=== PATIENT | female | born 1985 | race Caucasian/White ===

== ENCOUNTER 2018-01-23 08:01 | Emergency (ER) | payer OTHER ==
[2018-01-23 08:05] VITALS: BP 136/83
--- NOTE | 2018-01-23 08:25 | PHYS DOC ---
Past History Past Medical History: No Pertinent History Past Surgical History: No Surgical History Smoking: Non-smoker Alcohol Use: None Drug Use: None Adult General Chief Complaint Chief Complaint: SORE THROAT HPI HPI 32 years old female patient at 37 weeks of gestation complaining of sore throat and nasal congestion and nonproductive cough for the last 2 days without fever and chills, sick contact, abdominal pain and vaginal bleeding and discharge. Patient denies taking any pain medication or history of frequent strep infection. Patient feels movement. Review of Systems Review of Systems Constitutional: Denies fever or chills [] Eyes: Denies change in visual acuity, redness, or eye pain [] HENT: Reports nasal congestion and sore throat Respiratory: Reports nonproductive cough, denies shortness of breath Cardiovascular: No additional information not addressed in HPI [] GI: Denies abdominal pain, nausea, vomiting, bloody stools or diarrhea [] : Denies dysuria or hematuria [] Musculoskeletal: Denies back pain or joint pain [] Integument: Denies rash or skin lesions [] Neurologic: Denies headache, focal weakness or sensory changes [] Endocrine: Denies polyuria or polydipsia [] All other systems were reviewed and found to be within normal limits, except as documented in this note. Physical Exam Physical Exam Constitutional: Well developed, well nourished, mild distress, non-toxic appearance. [] HENT: Normocephalic, atraumatic, bilateral external ears normal, oropharynx moist, no oral exudates, nose normal. [] Eyes: PERRLA, EOMI, conjunctiva normal, no discharge. [] Neck: Normal range of motion, no tenderness, supple, no stridor. [] Cardiovascular:Heart rate regular rhythm, no murmur [] Lungs & Thorax: Bilateral breath sounds clear to auscultation [] Abdomen: Bowel sounds normal, soft, no tenderness, no masses, no pulsatile masses, gravid abdomen. [] Skin: Warm, dry, no erythema, no rash. [] Back: No tenderness, no CVA tenderness. [] Extremities: No tenderness, no cyanosis, no clubbing, ROM intact, no edema. [] Neurologic: Alert and oriented X 3, normal motor function, normal sensory function, no focal deficits noted. [] Psychologic: Affect normal, judgement normal, mood normal. [] EKG EKG [] Radiology/Procedures Radiology/Procedures [] Course & Med Decision Making Course & Med Decision Making Pertinent Labs reviewed. (See chart for details) Evaluation of patient in ER showed 32-year-old female patient at 37 weeks of gestation complaining of sore throat and nasal congestion for 2 days. Patient had unremarkable physical exam and negative strep test. Plan discharge patient home to diagnose of pharyngitis. She instructed to follow-up with her primary care physician and [facility] as needed. [] Dragon Disclaimer Dragon Disclaimer This electronic medical record was generated, in whole or in part, using a voice recognition dictation system. Departure Departure: Impression: Primary Impression: Acute pharyngitis Additional Impression: Currently Disposition: HOME, SELF-CARE (At 0849) Condition: STABLE Referrals: PCP,NO (PCP) Patient Instructions: Sore Throat Additional Instructions: Drink plenty of liquids Follow-up with your primary care physician in 3-5 days Return to ER if not getting better May take [id number] Tylenol as needed for pain Scripts Amoxicillin (AMOXICILLIN) 500 Mg Capsule 1 CAP PO TID, #21 CAP Prov: DOM EDWARDS MD 01/23/18 Problem Qualifiers DOM EDWARDS MD Jan 23, 2018 08:25
[2018-01-23] MEDS ORDERED: AMOX500C PO (08:51)
== END 2018-01-23 09:00 | disposition home or self-care (01) ==
LOC: ER 08:01
DX: O99.513 Diseases of the respiratory system complicating pregnancy, third trimester (principal); J02.9 Acute pharyngitis, unspecified; Z3A.37 37 weeks gestation of pregnancy
CPT/HCPCS: 87070; 87880; 99283